=== PATIENT | female | born 1945 | race Caucasian/White ===

== ENCOUNTER 2018-09-01 06:07 | Inpatient (IN) | payer MEDICARE, OTHER ==
[~2018-09-01] VITALS: Ht 162.6 cm; Wt 59.2 kg
[~2018-09-01 06:07] MED LIST: AMLO10TA8 PO; LATA2.5D3 EACHEYE
[2018-09-01] MEDS ORDERED: ROPIvacaine/PF 0.5%, 30 ML ONE (06:22)
[2018-09-01] MEDS ORDERED: EPINEPHRINE 1 MG/ML, 1ML ONE (06:22)
[2018-09-01] MEDS ORDERED: VANCOMYCIN 1,000 MG ONE (06:22)
[2018-09-01] MEDS ORDERED: KETOROLAC 60 MG/2 ML ONE (06:22)
[2018-09-01] MEDS ORDERED: SODIUM CHLORIDE 0.9% 50 ML ONE (06:22)
[2018-09-01] MEDS ORDERED: TRANEXAMIC ACID 100 MG/ML, 10ML ONE ×2 (06:22)
[2018-09-01] MEDS ORDERED: LACTATED RINGERS 1,000 ML IV SCH (06:29)
[2018-09-01] MEDS ORDERED: ACETAMINOPHEN 650 MG/20.3 ML UDC PO PRN (06:30)
[2018-09-01] MEDS ORDERED: OXYcodone IR 5MG TABLET PO PRN (06:30)
[2018-09-01] MEDS ORDERED: ONDANSETRON 2MG/ML, 2ML IV PRN ×2 (06:30→07:00)
[2018-09-01] MEDS ORDERED: ZOLPIDEM 5MG TABLET PO PRN (06:30)
[2018-09-01] MEDS ORDERED: HYDROcodone/APAP 5/325 TABLET PO PRN (06:30)
[2018-09-01] MEDS ORDERED: SCOPOLAMINE PATCH, 1.5MG PATCH.TD72 TD ONE (06:30)
[2018-09-01] MEDS ORDERED: BISACODYL 10 MG SUPP PR PRN (06:30)
[2018-09-01] MEDS ORDERED: ONDANSETRON 4 MG TABLET PO PRN (06:30)
[2018-09-01] MEDS ORDERED: DIPHENHYDRAMINE 50 MG CAPSULE PO PRN (06:30)
[2018-09-01] MEDS ORDERED: SENNA/DOCUSATE TABLET PO PRN (06:30)
[2018-09-01] MEDS ORDERED: MAGNESIUM HYDROXIDE 8%, 30ML UDC PO PRN (06:30)
[2018-09-01] MEDS ORDERED: FENTANYL PF 250 MCG/5ML ONE (06:36)
[2018-09-01] MEDS ORDERED: HYDROmorphone 2 MG/ML, 1ML IVPush PRN (07:00)
[2018-09-01] MEDS ORDERED: ONDANSETRON ODT 8 MG PO PRN (07:00)
[2018-09-01] MEDS ORDERED: OXYcodone 5 MG/5 ML ORAL.SOL UDC PO PRN (07:00)
[2018-09-01] MEDS ORDERED: PROMETHAZINE 25 MG/ML, 1ML IV PRN (07:00)
[2018-09-01] MEDS ORDERED: ACETAMINOPHEN 500 MG TABLET PO ONE (07:00)
[2018-09-01] MEDS ORDERED: FENTANYL PF 100 MCG/2ML IV PRN (07:00)
[2018-09-01] MEDS ORDERED: GABAPENTIN 300 MG CAPSULE PO ONE (07:00)
[2018-09-01 07:24] LABS: INTERNATIONAL NORMALIZED RATIO 0.93 (0.93-1.1); PROTHROMBIN TIME 9.8 Seconds (9.6-11.5)
[2018-09-01] MEDS ORDERED: FENTANYL PF 100 MCG/2ML ONE (07:37)
[2018-09-01] MEDS ORDERED: DEXAMETHASONE 4 MG/ML, 1ML ONE (07:37)
[2018-09-01] MEDS ORDERED: CEFAZOLIN 1,000 MG ONE (07:37)
[2018-09-01] MEDS ORDERED: ONDANSETRON 2MG/ML, 2ML ONE (07:37)
[2018-09-01] MEDS ORDERED: PROPOFOL 10 MG/ML, 20ML ONE (07:37)
[2018-09-01] MEDS ORDERED: GLYCOPYRROLATE 0.4 MG/2 ML, 2ML ONE (07:38)
[2018-09-01 08:04] LABS: HEMOGLOBIN A1C 5.3 % (4.2-6.3)
[2018-09-01] MEDS ORDERED: MEPERIDINE/PF 25MG/ML,1ML ONE (08:22)
[2018-09-01] MEDS ORDERED: MEPERIDINE/PF 25MG/0.5ML IVPush PRN (08:30)
[2018-09-01] MEDS ORDERED: DOCUSATE 100 MG CAPSULE PO SCH (09:00)
[2018-09-01] MEDS ORDERED: NS + 20MEQ KCL 1,000 ML IV SCH (09:30)
[2018-09-01 09:55] VITALS: BP 104/67
[2018-09-01 13:18] VITALS: BP 99/53
[2018-09-01] MEDS ORDERED: CEFAZOLIN PMX 2GM/50ML 50 ML IVPB SCH (14:00)
[2018-09-01 14:20] VITALS: BP 124/64
[2018-09-01] MEDS ORDERED: OXYC5TAB2 PO (15:10)
[2018-09-01] MEDS ORDERED: TRAM50TA2 PO (15:11)
[2018-09-01] MEDS ORDERED: MELO7.5T31 PO (15:12)
[2018-09-01] MEDS ORDERED: ONDA4TAB7 PO (15:12)
[2018-09-01] MEDS ORDERED: ASPIRIN 81 MG TABLET EC PO SCH (18:00)
[2018-09-01] MEDS ORDERED: LATANOPROST OPHTH 0.005%, 2.5ML EACHEYE SCH (21:00)
[2018-09-02] MEDS ORDERED: DEXAMETHASONE 4 MG/ML, 1ML IVPush SCH (06:00)
[2018-09-02] MEDS ORDERED: AMLODIPINE 10 MG TAB PO SCH (09:00)
== END 2018-09-01 15:50 | disposition home or self-care (01) | DRG 470 ==
LOC: ORIP 06:07 → 4NOR 09:08 → DCLOUNGE 15:40
PROVIDERS: ADMIT Orthopaedic Surgery; ATTEND Orthopaedic Surgery
PROC: 0SRB01A Replacement of Left Hip Joint with Metal Synthetic Substitute, Uncemented, Open Approach (ICD-10-PCS; principal; 2018-09-01 09:45)
DX: M16.12 Unilateral primary osteoarthritis, left hip (principal); I10 Essential (primary) hypertension
CPT/HCPCS: 36415; 72170; 76000; 83036; 85610; 85730; 87081; 87147; C1713; J0171; J0690; J1100; J1885; J2175; J2405; J2704; J2795; J3010; J3370; J3480; C1776